=== PATIENT | male | born 1940 | race Caucasian/White ===

== ENCOUNTER 2021-09-18 15:46 | Outpatient (REF) | payer MEDICARE, OTHER, SELFPAY ==
--- NOTE | ~2021-09-18 | CT_ITS ---
EXAMINATION: CT CHEST WITH CONTRAST CLINICAL INFORMATION: Pleural effusion and malignancy suspected. COMPARISON: [facility] CT chest 05/31/2021. TECHNIQUE: Multidetector volumetric CT imaging of the chest was obtained after the administration of 50 mL of Omnipaque 350 intravenous contrast without immediate adverse reactions. Axial MIP volume rendering provided. Sagittal and coronal reformatted images were obtained. This CT examination was performed using dose optimization techniques as appropriate, variously including the following: *Automated exposure control *Adjustment of mA and/or kV according to patient size (this includes techniques or standardized protocols for targeted exams where dose is matched to indication/reason for exam; i.e. extremities or head) *Use of iterative reconstruction technique DLP: 249 mGy-cm FINDINGS: MICROPALEONTOLOGIST: Well-inflated lungs with blunting of right CP angle, likely pleural effusion. LUNGS: There is a right upper lobe large mass-like opacity, likely consolidation/atelectasis is stable. Previously visualized subpleural nodule left upper lobe is not visualized. There are two 2 mm nodules in the left lower lobe axial image 38/4 and axial image 51/4 which are stable. MEDIASTINUM: The thyroid lobes are symmetric but heterogeneous. The central trachea and bronchi are widely patent. Heart size and the great vessels are normal caliber. No pericardial effusion seen. PLEURA: There is a large right pleural effusion, stable. AXILLA: No lymphadenopathy. UPPER ABDOMEN: Visualized liver, spleen, pancreas and bilateral adrenal glands are unremarkable. OSSEOUS STRUCTURES: There is moderate ventral spondylosis mid and lower dorsal spine. No lytic process. There is mild sclerosis of the sternum at the manubriosternal junction. CT/CT chest w con IMPRESSION: Moderate right pleural effusion with right upper lobe consolidation/atelectasis or a large scar, likely postradiation. Left upper lobe pulmonary nodule is not visualized. The other 2 nodules in the left lower lobe are stable and unchanged. No new nodules seen. No abnormal mediastinal adenopathy.
[2021-09-18] MEDS: iohexoL 350 MG/ML 100 ML INFUS..BTL 65 ML IV (16:14)
== END 2021-09-18 15:47 | disposition home or self-care (01) ==
LOC: HO.CT 15:46
PROVIDERS: Visit Provider Internal Medicine Medical Oncology
DX: J90 Pleural effusion, not elsewhere classified (principal)
CPT/HCPCS: 71260; Q9967